=== PATIENT | female | born 1985 | race Caucasian/White ===

== ENCOUNTER 2017-03-30 10:38 | Emergency (ER) | payer MEDICAID, OTHER ==
[~2017-03-30] VITALS: Ht 167.6 cm; Wt 63.5 kg
[2017-03-30 10:53] VITALS: BP 99/68
== END 2017-03-30 12:50 | disposition home or self-care (01) ==
LOC: ER 10:39
DX: S90.122A Contusion of left lesser toe(s) without damage to nail, initial encounter (principal); X50.1XXA Overexertion from prolonged static or awkward postures, initial encounter; Y93.89 Activity, other specified; Y92.89 Other specified places as the place of occurrence of the external cause; Y99.8 Other external cause status
CPT/HCPCS: 73660; 99284; A4606; Z7610